=== PATIENT | female | born 1975 | race Caucasian/White ===

== ENCOUNTER → 2017-08-13 | Outpatient (CLI) | payer MEDICAID | LOC: FIMAGING 09:23 | PROVIDERS: ATTEND Obstetrics & Gynecology | DX: Z12.31 Encounter for screening mammogram for malignant neoplasm of breast (principal); D25.0 Submucous leiomyoma of uterus; D25.2 Subserosal leiomyoma of uterus; N88.8 Other specified noninflammatory disorders of cervix uteri; Z80.3 Family history of malignant neoplasm of breast ==

== ENCOUNTER 2017-09-20 13:57 | Emergency (ER) | payer MEDICAID ==
[2017-09-20 14:04] VITALS: BP 110/72
--- NOTE | 2017-09-20 14:10 | EDPHY ---
H & P Stated Complaint: dog bite Time Seen by Provider: 09/20/17 14:09 - Personal History LMP (Females 10-55): 8-14 Days Ago Current Tetanus/Diphtheria Vaccine: Yes Current Tetanus Diphtheria and Acellular Pertussis (TDAP): Yes - Medical/Surgical History Hx Asthma: No Hx Chronic Respiratory Disease: No Hx Diabetes: No Hx Cardiac Disease: No Hx Renal Disease: No Hx Cirrhosis: No Hx Alcoholism: No Hx HIV/AIDS: No Hx Splenectomy or Spleen Trauma: No Other PMH: denies - Social History Smoking Status: Never smoked Constitutional: Initial Vital Signs Temperature (C) 37 C 09/20/17 14:02 Heart Rate 75 09/20/17 14:02 Respiratory Rate 16 09/20/17 14:02 Blood Pressure 110/72 09/20/17 14:02 O2 Sat (%) 96 09/20/17 14:02 O2 Delivery Mode Room Air Allergies/Adverse Reactions: No Known Allergies Allergy (Verified 09/20/17 14:02) Home Medications: Medication Instructions Recorded Amoxicillin/Clavulanate Pot 875 mg PO BID #20 tab 09/20/17 [Augmentin 875 MG TAB (RX)] Hydrocodone/APAP 5/325 [[place] 1 - 2 each PO Q4-6PRN PRN #20 tab 09/20/17 5/325] Medical Decision Making - Diagnostics Imaging Results: Imaging Impressions Forearm X-Ray 09/20/17 14:14 Impression: Soft tissue injury, with no radiopaque foreign body or acute osseous abnormality. Imaging: I viewed and interpreted images myself ED Course/Re-evaluation: CHIEF COMPLAINT: Left arm dog bite HISTORY OF PRESENT ILLNESS: The patient is a 42 y/o female complaining of a dog bite to her left arm. Her dog and another dog were playing when she was bit. She is unsure which dog bit her, but both dogs are up-to-date on her vaccinations. She did not notice any teeth in the wounds. Currently she is having mild pain in her arm with movement. Denies numbness, paresthesias, fever, chest pain, abdominal pain, shortness of breath. REVIEW OF SYSTEMS: A 10 point review of systems was performed and is negative with the exception of the elements mentioned in the history of present illness. PHYSICAL EXAM: HR, BP, O2 Sat, RR. Temp noted General Appearance: Alert, well hydrated, appropriate, and non-toxic appearing. Head: Atraumatic without scalp tenderness or obvious injury Eyes: Pupils equal, round, reactive to light and accommodation, EOMI, no trauma , no injection. Ears: Clear bilaterally, no perforation, normal landmarks Nose: Atraumatic, no rhinorrhea, clear. Throat: Mucus membranes moist. Neck: Supple, nontender, no lymphadenopathy. Respiratory: No retractions, no distress, no wheezes, and no accessory muscle use. Lungs are clear to auscultation bilaterally. Cardiovascular: Regular rate and rhythm, no murmurs, rubs, or gallops. Good capillary refill all extremities. Gastrointestinal: Abdomen is soft, nontender, non-distended, no masses, no rebound, no guarding, no peritoneal signs. Musculoskeletal: Multiple puncture sites to left forearm, limited range of motion due to pain. Neurological: Alert, appropriate, and interactive. Nonfocal neuro. Skin: No rashes, good turgor, no nodules on palpation. Past medical history: Denies Past surgical history: Denies Family history: Noncontributory Social history: Self employed as a massage therapist, single, lives in [place] DIAGNOSTICS/PROCEDURES/CRITICAL CARE TIME: Left arm x-ray: Normal DIFFERENTIAL DIAGNOSIS: The differential diagnosis for the patient's arm injury included but was not limited to puncture wounds, laceration, dog bite, fracture, ligamentous injury, contusion, muscular strain. MEDICAL DECISION MAKING: The patient is a 42 y/o female presenting with a dog bite to her left forearm. The dog is up-to-date on it's vaccinations. On exam she has multiple puncture sites to her left forearm and limited range of motion due to the pain. Left arm x-ray ordered to rule out foreign body. 1545: I reviewed patients x-ray which is normal. 1550: Reassessed patient and discussed normal imaging findings. I have prescribed her Augmentin and [place]. Return precautions provided; patient is comfortable with this plan. Departure - Departure Disposition: Home, Routine, Self-Care Clinical Impression: Dog bite Qualifiers: Encounter type: initial encounter Qualified Code(s): W54.0XXA - Bitten by dog, initial encounter Dog bite of left arm Qualifiers: Encounter type: initial encounter Qualified Code(s): S41.152A - Open bite of left upper arm, initial encounter Condition: Good Instructions: Animal Bite (ED) Additional Instructions: 1. Take Augmentin as prescribed. 2. Take [place] as prescribed. 3. Follow up with your primary care provider in the next week for unimproved symptoms. 4. Return to the Emergency Department for fever, redness, discharge from wound, increasing pain or other worsening of condition. Referrals: [facility],. [Clinic] - As per Instructions Prescriptions: Amoxicillin/Clavulanate Pot [Augmentin 875 MG TAB (RX)] 875 mg PO BID #20 tab Hydrocodone/APAP 5/325 [[place] 5/325] 1 - 2 each PO Q4-6PRN PRN #20 tab PRN Reason: Pain, Moderate Report Scribed for: Shan Gibbs Report Scribed by: Kaitlin Valadez Date of Report: 09/20/17 Time of Report: 14:11
== END 2017-09-20 15:54 | disposition home or self-care (01) ==
DX: S41.152A Open bite of left upper arm, initial encounter (principal); W54.0XXA Bitten by dog, initial encounter